=== PATIENT | female | born 1960 | race Caucasian/White ===

== ENCOUNTER → 2018-08-04 | Outpatient (CLI) | payer BC ==
[~2018-08-04] MED LIST: ALPRAZOLAM2 MG PO; AMBIENCR PO; AMLODIPINE BESYL5 MG PO; BIOTIN2500 MCG PO; BREO ELLIPTA 11 EACH IH; CARVEDILOL12.5 MG PO; CELEBREX 200 M200 M1 PO; COUMADIN 5 MG TA5 M1 PO; COUMADIN PO; COUMADIN6 MG PO; CYMBALTA60 MG PO; DIOVAN HCT 3201 EAC1 PO; DOXYCYCLINE 10100 MG PO; ENOXAPARIN100 MG/1 M SQ; GLUCOPHAGE XR750 MG OR; GLUCOPHAGE XR750 MG PO; HYDROCODON-ACE1 EAC4 PO; HYDROCODON-ACE1 EAC5 PO; LOVENOX SQ; METAXALONE800 MG PO; MINOCIN100 MG PO; MOBIC15 MG PO; NEXIUM40 MG PO; PERCOCET PO; RABEPRAZOLE SOD20 MG PO; SERTRALINE HCL50 MG PO; SIMVASTATIN40 MG PO; TOPAMAX200 MG PO; TOPAMAX50 MG PO; TRULICITY1.5 MG/0.5 SQ; VENTOLIN HFA 1818 GM INH; VITAMIN D1000 UNI1 PO; VITAMIN D400 UNI1 PO; XANAX 0.5 MG0.5 M1 PO; XANAX XR1 MG PO; XANAX1 MG PO; ZOCOR 20 MG TAB20 M1 PO; ZOLOFT 50 MG TA50 M1 PO
--- NOTE | ~2018-08-04 | SLE ---
[facility] Rosaura Hern[address]dez [place] [address] POLYSOMNOGRAPHY STUDY Name: KERRY YOUNG Room #: REG [facility]#: [id number] Admission: 08/04/18 Attend Phys: Junior Valero MD Discharge: Date of : 62 Report #: [id number] THIS REPORT FOR: //name// CC: Junior Shah MD DATE OF SERVICE: 08/04/2018 SLEEP STUDY ATTENDING PHYSICIAN: Doron Shah MD. HISTORY OF PRESENT ILLNESS: The patient is 58 years old who weighs 341 pounds and is 67 inches tall with a BMI of 53.4. The patient returned to [facility] for CPAP titration study. During the night study, the patient spent 413 minutes in bed and slept for 388 minutes with an excellent sleep efficiency of 94%. Sleep latency was 1.8 minutes with a REM latency of 152 minutes. Overall, sleep architecture showed normal stage 1 sleep, increased stage 2 sleep, absent slow wave and reduced REM sleep, which was 10% of the total sleep time. EKG monitoring revealed a normal sinus rhythm. Average heart rate of 60 beats per minute. No sustained arrhythmias were observed. PLMs are seen at an index of 9.7 per hour and 0.8 per hour caused EEG arousals. The patient was started on CPAP at 10 cm water and titrated up to 15 cm water. At the final pressure, the patient slept for 46.6 minutes. The patient had short REM sleep and no supine sleep seen. However, even at lower pressures, the patient did very well with an AHI of less than 1 per hour. At the final pressure of 15 cm water, the patient's AHI was 0 per hour and oxygen saturation remained above 90%. IMPRESSION: 1. Sleep apnea diagnosed previously. 2. No clinically significant periodic limb movements. RECOMMENDATIONS: 1. CPAP at 15 cm water completely eliminated the patient's sleep apnea and should be used on a nightly basis. 2. Follow up in 4-6 weeks to assess compliance with CPAP and to document clinical improvement. 3. Weight loss is strongly advised. [facility] [address] [place] [address] POLYSOMNOGRAPHY STUDY Name: YOUNGKERRY Room #: REG [facility]#: [id number] Admission: 08/04/18 Attend Phys: Junior Valero MD Discharge: Date of : 62 Report #: [id number] 4. Avoid [employer] depressants. 5. Cautioned regarding driving until symptoms of sleep apnea resolve with the use of CPAP. <ELECTRONICALLY SIGNED> By: Junior Valero MD 08/07/182015 [id number] Junior Valero MD /nt
== END ==
LOC: SLEEPLAB 10:49
DX: G47.33 Obstructive sleep apnea (adult) (pediatric) (principal)

== ENCOUNTER → 2020-06-19 | Outpatient (CLI) | payer BC, OTHER ==
[2020-06-19 10:20] LABS: ALBUMIN 3.7 g/dL (3.4-5.0); CALCIUM 9.4 mg/dL (8.5-10.1); POTASSIUM 4.3 mmol/L (3.5-5.1); TOTAL BILIRUBIN 0.3 mg/dL (0.2-1.0); TOTAL PROTEIN 7.6 g/dL (6.4-8.2)
== END ==
LOC: CAT 09:02
PROVIDERS: ATTEND Pediatrics
DX: I26.99 Other pulmonary embolism without acute cor pulmonale (principal); I51.7 Cardiomegaly; J98.4 Other disorders of lung